=== PATIENT | female | born 1940 | race Caucasian/White ===

== ENCOUNTER 2017-07-30 12:57 | Inpatient (IN) | payer MEDICARE, OTHER ==
[~2017-07-30] VITALS: Ht 157.5 cm; Wt 60.9 kg
[~2017-07-30 12:57] MED LIST: ARFO15VI INH; ASPI325T17 PO; BUDE0.5A INH; CARV6.252 PO; DIGO125T PO; FLUO40CA2 PO; FURO20TA3 PO; GABA600T2 PO; GUAI600T80 PO; LORA1TAB PO; MIRT15TA4 PO; OMEP40CA6 PO; ONDA4TAB13 SL; POTA10TA PO; PRED10TA PO; VENL75TA PO; VERA120T74 PO; ZOLP10TA PO
[2017-07-30] MEDS ORDERED: SODIUM CHLORIDE FLUSH 10ML SYR IVF ONE (14:00)
[2017-07-30] MEDS ORDERED: SODIUM CHLORIDE 0.9% 1,000 ML IV SCH (14:20)
[2017-07-30 14:23] LABS: IS PT STATUS REG ER OR PRE ER? YES
[2017-07-30] MEDS ORDERED: ACETAMINOPHEN 325 MG TABLET PO PRN (14:30)
[2017-07-30] MEDS ORDERED: CEFTRIAXONE PMX 1GM/50ML 50 ML IVPB SCH (14:30)
[2017-07-30] MEDS ORDERED: PHARMACY MAY ADJ FOR RENAL FX MC PRN (14:30)
[2017-07-30] MEDS ORDERED: morphine SULFATE 10 MG/ML, 1ML IV PRN (14:30)
[2017-07-30] MEDS ORDERED: DOCUSATE 100 MG CAPSULE PO PRN (14:30)
[2017-07-30] MEDS ORDERED: NITROGLYCERIN SINGLE TAB 0.4 MG SL PRN (14:30)
[2017-07-30] MEDS ORDERED: ALBUTEROL/IPRATROPIUM 2.5MG/0.5MG, 3 ML NPPB PRN (15:30)
[2017-07-30] MEDS: GUAIFENESIN 200 MG TABLET PO SCH ×2 (16:00→21:44)
[2017-07-30] MEDS: DOXYCYCLINE 100 MG in DEXTROSE 5% 250 ML IV SCH (16:23)
[2017-07-30] MEDS: ENOXAPARIN 40 MG/0.4 ML SQ SCH (17:30)
[2017-07-30] MEDS: methylPREDNISolone SOD SUCC 40 MG/ML IVPush SCH ×2 (17:33→21:47)
[2017-07-30] MEDS: ALBUTEROL/IPRATROPIUM 2.5MG/0.5MG, 3 ML NPPB SCH (20:09)
[2017-07-30] MEDS ORDERED: ZOLPIDEM 10MG TABLET PO SCH (21:00)
[2017-07-30] MEDS: ARFORMOTEROL TARTRATE 15 MCG INH SCH (21:00)
[2017-07-30] MEDS: BUDESONIDE 0.5 MG/2 ML INHA NPPB SCH (21:00)
[2017-07-30 21:09] LABS: IS PT STATUS REG ER OR PRE ER? NO
[2017-07-30 21:18] VITALS: BP 150/76
[2017-07-30] MEDS: CARVEDILOL 6.25 MG TABLET PO SCH (21:43)
[2017-07-30] MEDS: POTASSIUM CHLORIDE 10 MEQ TABLET.ER PO SCH (21:44)
[2017-07-30] MEDS: GABAPENTIN 300 MG CAPSULE PO SCH (21:44)
[2017-07-30] MEDS: MIRTAZAPINE 15 MG TABLET PO SCH (21:45)
[2017-07-31 00:31] VITALS: BP 155/80
[2017-07-31] MEDS: DOXYCYCLINE 100 MG in DEXTROSE 5% 250 ML IV SCH ×2 (02:27→15:11)
[2017-07-31] MEDS: methylPREDNISolone SOD SUCC 40 MG/ML IVPush SCH ×4 (02:27→19:39)
[2017-07-31] MEDS: ASPIRIN 325 MG TABLET EC PO SCH (05:33)
[2017-07-31] MEDS: GUAIFENESIN 200 MG TABLET PO SCH ×4 (05:33→19:40)
[2017-07-31 06:02] LABS: BLOOD UREA NITROGEN 24 mg/dL (7-18)
[2017-07-31 06:17] LABS: ASPARTATE AMINO TRANSFERASE 34 U/L (15-37)
[2017-07-31 06:33] VITALS: BP 118/73
[2017-07-31 06:39] LABS: HEMATOCRIT 35.6 % (34.6-47.8); HEMOGLOBIN 11.9 g/dL (11.7-16.4); WHITE BLOOD COUNT 10.6 x10^3/uL (3.4-10)
[2017-07-31 06:52] LABS: IS PT STATUS REG ER OR PRE ER? NO
[2017-07-31] MEDS ORDERED: FUROSEMIDE 40 MG TABLET ONE (08:11)
[2017-07-31] MEDS: FLUOXETINE 20 MG CAPSULE PO SCH (08:21)
[2017-07-31] MEDS: VENLAFAXINE 75MG TABLET PO SCH (08:21)
[2017-07-31] MEDS: VERAPAMIL ER 120MG TABLET.ER PO SCH (08:21)
[2017-07-31] MEDS: POTASSIUM CHLORIDE 10 MEQ TABLET.ER PO SCH ×2 (08:21→19:40)
[2017-07-31] MEDS: GABAPENTIN 300 MG CAPSULE PO SCH ×2 (08:21→19:40)
[2017-07-31] MEDS: OMEPRAZOLE 20 MG CAPSULE.DR PO SCH (08:22)
[2017-07-31] MEDS: CARVEDILOL 6.25 MG TABLET PO SCH ×2 (08:22→19:40)
[2017-07-31] MEDS: DIGOXIN 0.125 MG TABLET PO SCH (08:22)
[2017-07-31] MEDS: FUROSEMIDE 20 MG TABLET PO SCH (08:22)
[2017-07-31] MEDS ORDERED: methylPREDNISolone SOD SUCC 125 MG/2 ML ONE ×2 (08:24→15:07)
[2017-07-31] MEDS: ARFORMOTEROL TARTRATE 15 MCG INH SCH ×2 (09:00→21:00)
[2017-07-31] MEDS: BUDESONIDE 0.5 MG/2 ML INHA NPPB SCH ×2 (10:28→21:35)
[2017-07-31] MEDS: ALBUTEROL/IPRATROPIUM 2.5MG/0.5MG, 3 ML NPPB SCH ×2 (10:48→21:34)
[2017-07-31 13:01] VITALS: BP 122/64
[2017-07-31] MEDS ORDERED: SODIUM CHLORIDE 0.9% 1,000 ML IV SCH (14:20)
[2017-07-31] MEDS: ENOXAPARIN 40 MG/0.4 ML SQ SCH (15:11)
[2017-07-31 19:19] VITALS: BP 127/83
[2017-07-31] MEDS: MIRTAZAPINE 15 MG TABLET PO SCH (19:40)
[2017-07-31] MEDS ORDERED: ZOLPIDEM 5MG TABLET PO SCH (21:00)
[2017-08-01 00:04] VITALS: BP 125/73
[2017-08-01] MEDS: methylPREDNISolone SOD SUCC 40 MG/ML IVPush SCH ×3 (02:18→13:44)
[2017-08-01] MEDS: DOXYCYCLINE 100 MG in DEXTROSE 5% 250 ML IV SCH (02:19)
[2017-08-01] MEDS: ASPIRIN 325 MG TABLET EC PO SCH (05:45)
[2017-08-01] MEDS: GUAIFENESIN 200 MG TABLET PO SCH ×2 (05:45→13:44)
[2017-08-01] MEDS ORDERED: METH4TAB2 PO (07:12)
[2017-08-01] MEDS ORDERED: LISI5TAB7 PO (07:20)
[2017-08-01] MEDS ORDERED: DOXY100T10 PO (07:33)
[2017-08-01 07:37] VITALS: BP 135/81
[2017-08-01] MEDS: FUROSEMIDE 20 MG TABLET PO SCH (08:00)
[2017-08-01] MEDS: POTASSIUM CHLORIDE 10 MEQ TABLET.ER PO SCH (08:00)
[2017-08-01] MEDS: DIGOXIN 0.125 MG TABLET PO SCH (08:00)
[2017-08-01] MEDS: GABAPENTIN 300 MG CAPSULE PO SCH (08:00)
[2017-08-01] MEDS: VERAPAMIL ER 120MG TABLET.ER PO SCH (08:00)
[2017-08-01] MEDS: CARVEDILOL 6.25 MG TABLET PO SCH (08:00)
[2017-08-01] MEDS: VENLAFAXINE 75MG TABLET PO SCH (08:00)
[2017-08-01] MEDS: FLUOXETINE 20 MG CAPSULE PO SCH (08:00)
[2017-08-01] MEDS: OMEPRAZOLE 20 MG CAPSULE.DR PO SCH (08:01)
[2017-08-01] MEDS: ARFORMOTEROL TARTRATE 15 MCG INH SCH (08:01)
[2017-08-01] MEDS: ALBUTEROL/IPRATROPIUM 2.5MG/0.5MG, 3 ML NPPB SCH (09:45)
[2017-08-01] MEDS: BUDESONIDE 0.5 MG/2 ML INHA NPPB SCH (09:45)
[2017-08-01 14:53] VITALS: BP 136/73
[2017-08-01] MEDS ORDERED: DOXYCYCLINE 100MG TABLET PO SCH (21:00)
== END 2017-08-01 15:56 | disposition home or self-care (01) | DRG 871 ==
LOC: ED 13:59 → EDIP 14:00 → ED 14:27 → 5SO 15:27
PROVIDERS: ADMIT Hospitalist; ATTEND Hospitalist
DX: A41.9 Sepsis, unspecified organism (principal); J96.21 Acute and chronic respiratory failure with hypoxia; J18.9 Pneumonia, unspecified organism; D89.9 Disorder involving the immune mechanism, unspecified; I11.0 Hypertensive heart disease with heart failure; I24.8 Other forms of acute ischemic heart disease; B39.9 Histoplasmosis, unspecified; I50.9 Heart failure, unspecified; J44.0 Chronic obstructive pulmonary disease with (acute) lower respiratory infection; J44.1 Chronic obstructive pulmonary disease with (acute) exacerbation; E78.5 Hyperlipidemia, unspecified; F32.9 Major depressive disorder, single episode, unspecified; G47.00 Insomnia, unspecified; I25.10 Atherosclerotic heart disease of native coronary artery without angina pectoris; K21.9 Gastro-esophageal reflux disease without esophagitis; N76.0 Acute vaginitis; T38.0X5A Adverse effect of glucocorticoids and synthetic analogues, initial encounter; Z79.52 Long term (current) use of systemic steroids; Z79.82 Long term (current) use of aspirin; Z79.899 Other long term (current) drug therapy; Z87.891 Personal history of nicotine dependence; Z95.0 Presence of cardiac pacemaker; Z95.2 Presence of prosthetic heart valve; Z95.5 Presence of coronary angioplasty implant and graft; Z99.81 Dependence on supplemental oxygen; Z88.8 Allergy status to other drugs, medicaments and biological substances
CPT/HCPCS: 36415; 71010; 80053; 80061; 80162; 83735; 84100; 84443; 84484; 85025; 87040; 87324; 93005; 93306; 94640; 99285; J0696; J1650; J7060; J7620; J7626; J2920